=== PATIENT | female | born 1965 | race Caucasian/White ===

== ENCOUNTER 2021-10-07 01:11 | Emergency (ER) | payer SELFPAY ==
[~2021-10-07] VITALS: Ht 167.6 cm; Wt 70.3 kg
--- NOTE | 2021-10-07 01:31 | NUR ---
BIB SON EPIGASTRIC PAIN RADITIANG TO CHEST X 10HRS WELL NASUEA -VOMITTING. PT HAS A HX OF GASTRITIS. PT PLACED ON A MONITOR AND ALL VS STABLE. MD WAS AT THE BEDSIDE FOR EVAL.
[2021-10-07] MEDS ORDERED: MAG HYDROX/AL HYDROX/SIMETH 30 ML UDC PO ONE (02:00)
[2021-10-07] MEDS ORDERED: LIDOCAINE VISCOUS 2% UD 15 ML UDC MM ONE (02:00)
[2021-10-07] MEDS ORDERED: KETOROLAC TROMETHAMINE INJ 30 MG/ML VIAL IM ONE (02:00)
[2021-10-07] MEDS ORDERED: KETOROLAC TROMETHAMINE 15 MG/ML VIAL ONE (02:08)
[2021-10-07] MEDS ORDERED: MAG HYDROX/AL HYDROX/SIMETH 30 ML UDC ONE (02:08)
[2021-10-07] MEDS ORDERED: LIDOCAINE VISCOUS 2% UD 15 ML UDC ONE (02:09)
[2021-10-07 02:59] LABS: BASOPHILS % (AUTO) 0.4 % (0.0-2.0); HEMATOCRIT 41 % (33-45); HEMOGLOBIN 13.8 g/dL (11.5-14.8); LYMPHOCYTES % (AUTO) 18.9 % (20.0-44.0); MEAN CORPUSCULAR HGB CONC 34 g/dl (31.0-36.0); MEAN CORPUSCULAR VOLUME 82 fL (82-100); MONOCYTES # (AUTO) 0.6 K/uL (0.1-1.30); MONOCYTES % (AUTO) 5.6 % (2.0-12.0); NEUTROPHILS # (AUTO) 7.9 K/uL (1.8-8.9); NEUTROPHILS % (AUTO) 74.1 % (43.0-81.0); PLATELET COUNT (AUTO) 313 K/uL (150-450); RED BLOOD CELL COUNT(AUTO) 4.97 MIL/uL (4.0-5.2); WHITE BLOOD COUNT (AUTO) 10.6 K/uL (4.3-11.0)
[2021-10-07 03:29] LABS: CALCIUM, SERUM 9.2 mg/dL (8.5-10.1); CARBON DIOXIDE 27 mmol/L (21-32); CHLORIDE 104 mmol/L (98-107); CREATININE 0.9 mg/dL (0.6-1.3); GLUCOSE 118 mg/dL (74-106); POTASSIUM 4.4 mmol/L (3.5-5.1); SODIUM SERUM 139 mmol/L (136-145); UREA NITROGEN, BLOOD 17 mg/dL (7-18)
[2021-10-07 03:30] LABS: ALANINE AMINOTRANSFERASE 31 U/L (12-78); ALBUMIN 3.8 g/dL (3.4-5.0); ALKALINE PHOSPHATASE 122 U/L (46-116); ASPARTATE AMINOTRANSFERASE 18 U/L (15-37); BILIRUBIN,DIRECT 0.1 mg/dL (0.0-0.2); BILIRUBIN,TOTAL 0.2 mg/dL (0.2-1.0); LIPASE 119 U/L (73-393); TOTAL PROTEIN, SERUM 8.3 g/dL (6.4-8.2)
--- NOTE | 2021-10-07 03:42 | NUR ---
FOLLOWED UP RADIOLOGY FOR ULTRASOUND
--- NOTE | 2021-10-07 04:11 | NUR ---
ULTRASOUND AT BEDSIDE
[2021-10-07] MEDS ORDERED: MORPHINE SULFATE INJ 4 MG/ML DISP.SYRIN ONE (05:00)
[2021-10-07] MEDS ORDERED: IV NS 0.9% 500 ML BAG IV ONE (05:00)
[2021-10-07] MEDS ORDERED: MORPHINE SULFATE INJ 2 MG/ML DISP.SYRIN IV ONE (05:00)
[2021-10-07] MEDS ORDERED: ONDANSETRON HCL/PF 4 MG/2 ML VIAL ONE (05:00)
[2021-10-07] MEDS ORDERED: ONDANSETRON HCL/PF 4 MG/2 ML VIAL IVP ONE (05:00)
--- NOTE | 2021-10-07 05:16 | NUR ---
CALLED NURIS TO HAVE IMAGES READ
--- NOTE | 2021-10-07 05:58 | NUR ---
Patient discharged to home in stable condition. Written and verbal after care instructions given. Patient verbalizes understanding of instruction.IV removed. Catheter intact and site benign. Pressure and 4x4 applied to site. No bleeding noted. Pt ambulatory with a steady gait
[2021-10-07 06:10] VITALS: BP 131/70
== END 2021-10-07 05:58 | disposition home or self-care (01) ==
LOC: ER 01:15
DX: K80.20 Calculus of gallbladder without cholecystitis without obstruction (principal); I10 Essential (primary) hypertension; E78.5 Hyperlipidemia, unspecified; F41.9 Anxiety disorder, unspecified
CPT/HCPCS: 36415; 71045; 76705; 80048; 80076; 83690; 84484; 85025; 93005; 96372; 96374; 96375; 99285; J1885; J2270; J2405; J7040

== ENCOUNTER 2021-11-23 15:59 | Inpatient (IN) | payer OTHER ==
[~2021-11-23] VITALS: Ht 167.6 cm; Wt 74.4 kg
--- NOTE | 2021-11-23 17:01 | NUR ---
TO ER BED 9, EPIGASTRIC/LUQ PAIN X 3 DAYS. DENIES N/V/D, AAOX3, BREATHING EVEN AND NON LABORED, CONNECTED TO MONITOR, AWAITING MD GARCIA
[2021-11-23] MEDS ORDERED: IV NS 0.9% 250 ML IV ONE (17:15)
[2021-11-23] MEDS ORDERED: MORPHINE SULFATE INJ 4 MG/ML DISP.SYRIN ONE (17:15)
[2021-11-23] MEDS ORDERED: IOHEXOL-300 100 ML VIAL IV ONE (17:15)
--- NOTE | 2021-11-23 17:20 | NUR ---
URINE COLLECTED AND SENT TO LAB
--- NOTE | 2021-11-23 17:25 | NUR ---
SALINE LOCK ESTABLISHED, BLOOD DRAWN AND SENT TO LAB
[2021-11-23] MEDS ORDERED: IV NS 0.9% 1,000 ML BAG IV ONE (17:30)
[2021-11-23] MEDS ORDERED: MORPHINE SULFATE INJ 2 MG/ML DISP.SYRIN IV ONE ×2 (17:30→20:30)
[2021-11-23 18:04] LABS: BASOPHILS % (AUTO) 0.2 % (0.0-2.0); EOSINOPHILS % (AUTO) 0.2 % (0.0-6.0); HEMATOCRIT 39 % (33-45); HEMOGLOBIN 12.5 g/dL (11.5-14.8); LYMPHOCYTES # (AUTO) 0.8 K/uL (0.8-4.8); LYMPHOCYTES % (AUTO) 4.9 % (20.0-44.0); MEAN CORPUSCULAR HGB CONC 32 g/dl (31.0-36.0); MEAN CORPUSCULAR VOLUME 83 fL (82-100); MONOCYTES # (AUTO) 1.5 K/uL (0.1-1.30); MONOCYTES % (AUTO) 9.5 % (2.0-12.0); NEUTROPHILS # (AUTO) 13.3 K/uL (1.8-8.9); NEUTROPHILS % (AUTO) 85.2 % (43.0-81.0); PLATELET COUNT (AUTO) 321 K/uL (150-450); RED BLOOD CELL COUNT(AUTO) 4.67 MIL/uL (4.0-5.2); WHITE BLOOD COUNT (AUTO) 15.5 K/uL (4.3-11.0)
[2021-11-23 18:18] LABS: BILIRUBIN,URINE NEGATIVE (NEGATIVE); COLOR,URINE YELLOW (YELLOW); LEUKOCYTE ESTERASE ,URINE MODERATE (NEGATIVE); NITRITE, URINE NEGATIVE (NEGATIVE); PROTEIN,URINE 30 mg/dl (NEGATIVE); UGLUCOSE NEGATIVE (NEGATIVE); UROBILINOGEN,URINE 0.2 EU/dL (0.2)
[2021-11-23 18:29] LABS: ALBUMIN 3.6 g/dL (3.4-5.0); BILIRUBIN,DIRECT 0.3 mg/dL (0.0-0.2); BILIRUBIN,TOTAL 0.8 mg/dL (0.2-1.0); CALCIUM, SERUM 8.6 mg/dL (8.5-10.1); POTASSIUM 3.7 mmol/L (3.5-5.1); TOTAL PROTEIN, SERUM 8.7 g/dL (6.4-8.2)
--- NOTE | 2021-11-23 18:35 | NUR ---
PT TAKEN TO CT VIA [facility]
--- NOTE | 2021-11-23 18:41 | NUR ---
PT RETURNED TO ER BET [address]
[2021-11-23 19:02] LABS: BACTERIA,URINE 4+ /HPF (None Seen); RBC,URINE 21-50 /HPF (0-2); WBC,URINE 21-50 /HPF (0-3)
--- NOTE | 2021-11-23 19:13 | NUR ---
REPORT GIVEN TO JESSICA RANDOLPH FOR IRLANDA
[2021-11-23] MEDS ORDERED: PIPERACILLIN /TAZOBACTAM 3.375 G in IV D5W 50 ML IV ONE (19:30)
--- NOTE | 2021-11-23 19:46 | NUR ---
MRSA SWAB COLLECTED AND SENT TO LAB. PATIENT'S BELONGINGS LIST DONE.
--- NOTE | 2021-11-23 20:10 | NUR ---
CLINICAL INFO GIVEN TO ANANTH, BURNER TECHNICIAN, OVER THE PHONE. AUTHORIZATION GIVEN TO ADMIT THE PT
--- NOTE | 2021-11-23 20:15 | NUR ---
DR PICHARDO ON THE PHONE WITH DR BALLESTEROS, HOSPITALIST
[2021-11-23] MEDS ORDERED: PIPERACILLIN /TAZOBACTAM 3.375 G VIAL IV ONE (20:17)
--- NOTE | 2021-11-23 20:19 | NUR ---
DR PICHARDO ON THE PHONE W/ DR AVILA, SURGEON
[2021-11-23] MEDS ORDERED: Z GUARD REMEDY 4 OZ OINT TP PRN (20:30)
[2021-11-23] MEDS ORDERED: MAGNESIUM HYDROXIDE 30 ML UDC PO PRN (20:30)
[2021-11-23] MEDS ORDERED: MAG HYDROX/AL HYDROX/SIMETH 30 ML UDC PO PRN (20:30)
[2021-11-23] MEDS ORDERED: IV LR 1000 ML 1,000 ML IV ONE (20:30)
--- NOTE | 2021-11-23 21:18 | NUR ---
ASSIGNED TO 323-1. PER SCHEDULED FOR SURGERY AT 0730
--- NOTE | 2021-11-23 21:53 | NUR ---
report given to rey RANDOLPH
[2021-11-23 22:00] VITALS: BP 128/80
--- NOTE | 2021-11-23 22:02 | NUR ---
TRANFERREDTO THIRD FLOOR IN STABLE CONDITION
[2021-11-23] MEDS: ONDANSETRON HCL/PF 4 MG/2 ML VIAL IVP PRN (22:09)
--- NOTE | 2021-11-23 22:10 | NUR ---
MS PARCEL POST ORDER CLERK NOTE PATIENT ARRIVED ON FLOOR, ALERT/ORIENTED X 4, PRIMARILY LUXEMBOURGISH SPEAKING. PATIENT REPORTS NAUSEA AND ABDOMINAL PAIN DESPITE MORPHINE GIVEN IN ER. PATIENT STABLE ON ROOM AIR, NO S/S OF DISTRESS OR SOB NOTED, BREATHING EVEN AND UNLABORED. IV ACCESS ON LEFT AC #20G INTACT AND FLUSHING WELL. PATIENT STATES ONLY MEDICAL HISTORY IS HTN, TAKES LISINOPRIL 10 MG ONCE DAILY. SKIN IS INTACT. PATIENT AMBULATORY AND STEADY. ID BAND PLACED ON PATIENT, BELONGINGS ACCOUNTED FOR AND CHARTED. PER ER NURSE, PATIENT TO BE NPO AT MIDNIGHT FOR LAPAROSCOPIC CHOLECYSTECTOMY, POSSIBLE OPEN WITH DR. AUSTIN MD TO CONSULT IN THE MORNING. SAFETY MEASURES IN PLACE: CALL LIGHT WITHIN REACH, SIDE RAILS UP X 2, BED LOCKED IN LOW POSITION. WILL CONTINUE TO MONITOR PATIENT
[2021-11-23] MEDS: ACETAMINOPHEN 325 MG TABLET PO PRN (22:45)
--- NOTE | 2021-11-23 22:45 | NUR ---
MS RN NOTE CALLED DR. BALLESTEROS REGARDING TEMPERATURE OF 101.9, STATED TO GIVE TYLENOL AND CONTINUE TO MONITOR. TYLENOL 650 MG PO GIVEN ORDERED. WILL CONTINUE TO MONITOR PATIENT
[2021-11-23] MEDS: IV NS 0.9% 1,000 ML IV PRN (22:46)
[2021-11-24] MEDS ORDERED: PIPERACILLIN /TAZOBACTAM 3.375 G in IV D5W 50 ML IV SCH
--- NOTE | 2021-11-24 | NUR ---
MS RN NOTE REASSESSED PATIENT'S TEMPERATURE, NOW 99 DEGREES. WILL CONTINUE TO MONITOR PATIENT
[2021-11-24] MEDS ORDERED: PIPERACILLIN /TAZOBACTAM 3.375 G VIAL IV ONE ×2 (00:06→06:49)
[2021-11-24] MEDS: MORPHINE SULFATE INJ 2 MG/ML DISP.SYRIN IV PRN ×2 (00:53→11:07)
[2021-11-24 06:23] LABS: BASOPHILS # (AUTO) 0.1 K/uL (0.0-0.2); BASOPHILS % (AUTO) 0.4 % (0.0-2.0); EOSINOPHILS % (AUTO) 0.4 % (0.0-6.0); HEMATOCRIT 33 % (33-45); HEMOGLOBIN 10.9 g/dL (11.5-14.8); LYMPHOCYTES % (AUTO) 12.4 % (20.0-44.0); MEAN CORPUSCULAR HGB CONC 33 g/dl (31.0-36.0); MEAN CORPUSCULAR VOLUME 82 fL (82-100); MONOCYTES # (AUTO) 1.9 K/uL (0.1-1.30); MONOCYTES % (AUTO) 11.9 % (2.0-12.0); NEUTROPHILS # (AUTO) 12.1 K/uL (1.8-8.9); NEUTROPHILS % (AUTO) 74.9 % (43.0-81.0); PLATELET COUNT (AUTO) 274 K/uL (150-450); RED BLOOD CELL COUNT(AUTO) 4.01 MIL/uL (4.0-5.2); WHITE BLOOD COUNT (AUTO) 16.1 K/uL (4.3-11.0)
[2021-11-24 07:10] LABS: CALCIUM, SERUM 8.3 mg/dL (8.5-10.1); MAGNESIUM 2.1 mg/dL (1.8-2.4); PHOSPHORUS 3.1 mg/dL (2.5-4.9); POTASSIUM 4.3 mmol/L (3.5-5.1)
[2021-11-24] MEDS ORDERED: LISI10TA29 PO (07:13)
[2021-11-24] MEDS ORDERED: OMEP20CA15 PO (07:14)
[2021-11-24] MEDS ORDERED: ROCURONIUM BROMIDE 50 MG/5 ML ONE (07:14)
[2021-11-24] MEDS ORDERED: FAMOTIDINE/PF INJ 20 MG/2 ML VIAL IV ONE (07:14)
[2021-11-24] MEDS ORDERED: HYDROMORPHONE INJ 2 MG/ML DISP.SYRIN ONE (07:14)
[2021-11-24] MEDS ORDERED: ANESTHESIA TRAY IN PYXIS 1 EA TRAY MC ONE (07:17)
[2021-11-24] MEDS ORDERED: BUPIVACAINE 0.5 % PF 150 MG/30 ML VIAL ONE (07:18)
[2021-11-24] MEDS ORDERED: BUPIVACAINE MPF W/EPI 0.25% 30 ML VIAL ONE (07:18)
--- NOTE | 2021-11-24 07:23 | NUR ---
MS RN OPENING NOTES PATIENT IN PROCEDURE, WILL REASSESS ONCE BACK ON THE FLOOR
[2021-11-24] MEDS ORDERED: CELLULOSE,OXIDIZED 1 EA PACK MC ONE (08:23)
[2021-11-24] MEDS ORDERED: HEMOSTATIC MATRIX 8 ML 1 EACH PAD MC ONE (09:58)
[2021-11-24] MEDS: PIPERACILLIN /TAZOBACTAM 3.375 G in IV D5W 100 ML IV SCH ×2 (10:08→16:09)
--- NOTE | 2021-11-24 10:32 | NUR ---
RN NOTES RECEIVED PATIENT FROM PROCEDURE PATIENT IS A/O X3. PATIENT IS BREATHING EVENLY AND NONLABORED ON ROOM AIR, NO SIGNS OF DISTRESS NOTED. PATIENT COMPLAINS OF PAIN, BUT ASKED TO WAIT FOR PAIN MEDICATION FOR NOW. VITALS BP 115/76, HR 80, RR16, O2 SAT 97% ON ROOM AIR. PATIENT HAS IV ACCESS NOTED ON LAC PATENT INTACT RUNNING ZOSYN @ 25ML/HR, SAFETY MEASURES IN PLACE BED LOW LOCKED AND CALL LIGHT WITHIN REACH. WILL CONTINUE TO MONITOR
[2021-11-24] MEDS: ACETAMINOPHEN 325 MG TABLET PO PRN (16:46)
[2021-11-24] MEDS: HYDROMORPHONE 1 MG/1 ML DISP.SYRIN IV PRN ×2 (17:29→22:09)
--- NOTE | 2021-11-24 18:27 | NUR ---
MS RN CLOSING NOTES PATIENT FROM PROCEDURE PATIENT IS A/O X3. PATIENT IS BREATHING EVENLY AND NONLABORED ON ROOM AIR, NO SIGNS OF DISTRESS NOTED. PATIENT DENIES PAIN OR DISCOMFORT AT THIS TIME. PAIN MEDICATION WAS GIVEN VITALS MAINTAINED WNL. PAIN MEDICATION EFFECTIVE. PATIENT HAS IV ACCESS NOTED ON LAC PATENT INTACT RUNNING ZOSYN @ 25ML/HR, ALL MEDICATIONS GIVEN ORDERED. SAFETY MEASURES IN PLACE BED LOW LOCKED AND CALL LIGHT WITHIN REACH. WILL ENDORSE TO ONCOMING SHIFT
[2021-11-24 20:20] VITALS: BP 103/63
[2021-11-24 20:33] VITALS: BP 103/63
[2021-11-24] MEDS: IV NS 0.9% 1,000 ML IV PRN (22:03)
--- NOTE | 2021-11-24 22:11 | NUR ---
RN NOTE: PAIN PATIENT C/O ABDOMINAL PAIN, SURGERY SITE 08/01. PATIENT REQUESTED TO TAKE PAIN MEDICINE, ONLY DILAUDID AT THIS TIME, NOT MORPHINE. PRN DILAUDID 1 MG IV ADMINISTERED ORDERED. WILL CONTINUE TO MONITOR FOR ANY CHANGES. PATIENT IS ALERT & O X 4 AND AWAKE AT THIS TIME. NO ACUTE DISTRESS NOTED AT THIS TIME.
[2021-11-25] MEDS: PIPERACILLIN /TAZOBACTAM 3.375 G in IV D5W 100 ML IV SCH ×3 (01:28→16:17)
[2021-11-25] MEDS: HYDROMORPHONE 1 MG/1 ML DISP.SYRIN IV PRN ×3 (03:21→18:19)
--- NOTE | 2021-11-25 03:25 | NUR ---
RN NOTE: PAIN PATIENT C/O ABDOMINAL PAIN, SURGERY SITE 07/01 AND REQUESTED TO TAKE PAIN MEDICINE, PRN DILAUDID 1 MG IV ADMINISTERED ORDERED. WILL CONTINUE TO MONITOR FOR ANY CHANGES. PATIENT IS ABLE TO AMBULATE TO THE BATHROOM WITH STAND BY ASSIST. NO ACUTE DISTRESS NOTED AT THIS TIME.
[2021-11-25] MEDS: ACETAMINOPHEN 325 MG TABLET PO PRN (05:53)
--- NOTE | 2021-11-25 05:57 | NUR ---
MS RN NOTE: C/O HEADACHE PATIENT C/O HEADACHE 01/29, VITALS CHECKED BP 104/61, 74, 18, 98.7, 96% AT RA. PATIENT REQUESTED TO TAKE TYLENOL. PRN TYLENOL 650 MG PO ADMINISTERED.
[2021-11-25 06:33] LABS: BASOPHILS % (AUTO) 0.1 % (0.0-2.0); HEMATOCRIT 27 % (33-45); HEMOGLOBIN 9.1 g/dL (11.5-14.8); LYMPHOCYTES # (AUTO) 1.2 K/uL (0.8-4.8); LYMPHOCYTES % (AUTO) 8.7 % (20.0-44.0); MEAN CORPUSCULAR HGB CONC 34 g/dl (31.0-36.0); MEAN CORPUSCULAR VOLUME 82 fL (82-100); MONOCYTES % (AUTO) 6.8 % (2.0-12.0); NEUTROPHILS % (AUTO) 84.4 % (43.0-81.0); PLATELET COUNT (AUTO) 278 K/uL (150-450); RED BLOOD CELL COUNT(AUTO) 3.32 MIL/uL (4.0-5.2); WHITE BLOOD COUNT (AUTO) 14.3 K/uL (4.3-11.0)
[2021-11-25 07:05] LABS: ALBUMIN 2.3 g/dL (3.4-5.0); BILIRUBIN,TOTAL 0.8 mg/dL (0.2-1.0); CALCIUM, SERUM 8.1 mg/dL (8.5-10.1); POTASSIUM 3.5 mmol/L (3.5-5.1); TOTAL PROTEIN, SERUM 6.6 g/dL (6.4-8.2)
--- NOTE | 2021-11-25 07:18 | NUR ---
MS RN OPENING NOTES RECEIVED PATIENT IN BED. E PATIENT IS A/O X3. PATIENT IS BREATHING EVENLY AND NONLABORED ON ROOM AIR, NO SIGNS OF DISTRESS NOTED. PATIENT DENIES PAIN OR DISCOMFORT AT THIS TIME. PATIENT HAS IV ACCESS NOTED ON LAC PATENT INTACT RUNNING NS @ 75ML/HR. SAFETY MEASURES IN PLACE BED LOW LOCKED AND CALL LIGHT WITHIN REACH. WILL
[2021-11-25] MEDS ORDERED: OMEPRAZOLE 20 MG CAPSULE.DR PO SCH (07:30)
[2021-11-25] MEDS: PANTOPRAZOLE 40 MG TABLET.DR PO SCH (08:11)
[2021-11-25] MEDS: LISINOPRIL (10MG) 10 MG TABLET PO SCH (08:13)
[2021-11-25] MEDS: ONDANSETRON HCL/PF 4 MG/2 ML VIAL IVP PRN (11:01)
[2021-11-25] MEDS: METOCLOPRAMIDE HCL 10 MG TABLET PO SCH ×3 (11:01→23:14)
--- NOTE | 2021-11-25 13:22 | NUR ---
RN NOTE PATIENT COMPLAINED OF PAIN, BUT DID NOT WANT DILAUDID OR TYLENOL SAID DILAUDID MAKES HER FEEL DROWSY. MD NOTIFIED WHO GAVE NEW ORDER FOR NORCO 5/325 Q6HRS PRN
[2021-11-25] MEDS: HYDROCODONE/APAP 5/325MG TABLET PO PRN ×2 (13:39→22:35)
--- NOTE | 2021-11-25 19:25 | NUR ---
MS/RN NOTES PT AWAKE IN BED, A/OX4. DENIES PAIN AT THIS TIME. RESPIRATIONS EVEN/UNLABORED. IV SITE: L-AC #20 INTACT/PATENT, RUNNING NS @75ML/HR. WITH MARIA DOLORES DRAIN INTACT, EMPTIED 20CC AT THIS TIME. PT IN NO ACUTE DISTRESS. SAFETY MEASURES IN PLACE, BED IN LOWEST LOCKED POSITION, S/R UPX2, CALL LIGHT WITHIN REACH. WILL CONT TO MONITOR.
[2021-11-25 20:00] VITALS: BP 128/71
[2021-11-25] MEDS: IV NS 0.9% 1,000 ML IV PRN (21:06)
[2021-11-26] MEDS: PIPERACILLIN /TAZOBACTAM 3.375 G in IV D5W 100 ML IV SCH ×2 (00:07→08:48)
[2021-11-26] MEDS: HYDROMORPHONE 1 MG/1 ML DISP.SYRIN IV PRN (05:53)
[2021-11-26] MEDS: METOCLOPRAMIDE HCL 10 MG TABLET PO SCH ×2 (05:53→11:40)
--- NOTE | 2021-11-26 06:50 | NUR ---
MS/RN NOTES PT RESTING IN BED, EASILY AROUSABLE TO STIMULI. RESPIRATIONS EVEN/UNLABORED. PAIN WELL CONTROLLED WITH CURRENT PAIN MEDS. PT ABLE TO AMBULATE TO BR WITH SLOW STEADY GAIT, SUPERVISION PROVIDED FOR SAFETY. ONGOING IVF OF NS @75ML/HR AND SUMMER WELL. PT IN NO ACUTE DISTRESS. SAFETY MEASURES MAINTAINED.
[2021-11-26 06:55] LABS: BASOPHILS % (AUTO) 0.4 % (0.0-2.0); EOSINOPHILS % (AUTO) 0.9 % (0.0-6.0); HEMATOCRIT 30 % (33-45); LYMPHOCYTES # (AUTO) 2.2 K/uL (0.8-4.8); LYMPHOCYTES % (AUTO) 21.9 % (20.0-44.0); MEAN CORPUSCULAR HGB CONC 33 g/dl (31.0-36.0); MEAN CORPUSCULAR VOLUME 82 fL (82-100); MONOCYTES # (AUTO) 0.6 K/uL (0.1-1.30); MONOCYTES % (AUTO) 5.5 % (2.0-12.0); NEUTROPHILS # (AUTO) 7.2 K/uL (1.8-8.9); NEUTROPHILS % (AUTO) 71.3 % (43.0-81.0); PLATELET COUNT (AUTO) 311 K/uL (150-450); RED BLOOD CELL COUNT(AUTO) 3.63 MIL/uL (4.0-5.2); WHITE BLOOD COUNT (AUTO) 10.1 K/uL (4.3-11.0)
--- NOTE | 2021-11-26 07:15 | NUR ---
MS RN OPENING NOTES RECEIVED PATIENT RESTING IN BED, NO SIGNS OF ACUTE DISTRESS NOTED. ON ROOM AIR, NO SOB NOTED. NO C/O PAIN AT THIS TIME. IV ACCESS ON LAC INTACT AND PATENT. WITH MARIA DOLORES DRAIN NOTED WITH SEROSANGUINEOUS OUTPUT. SAFETY MEASURES IN PLACE. BED LOCKED AND IN LOWEST POSITION, SR UP X2, CALL LIGHT PLACED WITHIN EASY REACH. WILL CONTINUE TO MONITOR PT.
[2021-11-26 07:32] LABS: ALBUMIN 2.4 g/dL (3.4-5.0); BILIRUBIN,TOTAL 0.4 mg/dL (0.2-1.0); CALCIUM, SERUM 8.1 mg/dL (8.5-10.1); POTASSIUM 3.3 mmol/L (3.5-5.1); TOTAL PROTEIN, SERUM 7.1 g/dL (6.4-8.2)
[2021-11-26 08:20] VITALS: BP 121/73
[2021-11-26] MEDS: LISINOPRIL (10MG) 10 MG TABLET PO SCH (08:49)
[2021-11-26] MEDS: PANTOPRAZOLE 40 MG TABLET.DR PO SCH (08:49)
[2021-11-26] MEDS: ACETAMINOPHEN 325 MG TABLET PO PRN (08:55)
[2021-11-26] MEDS ORDERED: ACET-907 PO (09:15)
[2021-11-26] MEDS ORDERED: POTASSIUM CHLORIDE 20 MEQ TAB.PRT.SR PO SCH (10:00)
[2021-11-26] MEDS: HYDROCODONE/APAP 5/325MG TABLET PO PRN (15:53)
--- NOTE | 2021-11-26 16:10 | NUR ---
DERRICK FOLLOWER NOTES PATIENT DISCHARGED HOME IN STABLE CONDITION. ALERT AND ORIENTED X4, VERBALLY RESPONSIVE. VITAL SIGNS TAKEN, STABLE AND RECORDED. ALL BELONGINGS ACCOUNTED FOR, FORM SIGNED BY PATIENT. EXIT FOLDER, DISCHARGE INSTRUCTIONS AND HEALTH TEACHINGS PROVIDED TO PATIENT AND SON WITH VERBALIZATION OF UNDERSTANDING. IV ACCESS REMOVED, NO BLEEDING NOTED, PRESSURE DRESSING APPLIED. ARM NAME BAND ALSO REMOVED. PATIENT LEFT UNIT @1600 VIA W/C ACCOMPANIED BY PETRA RAMIREZ AND SOO GARCIA. CN AWARE OF DISCHARGE.
[2021-11-26 16:11] VITALS: BP 105/71
== END 2021-11-26 16:00 | disposition home or self-care (01) | DRG 710 ==
LOC: ER 16:02 → MED 21:22
PROVIDERS: ADMIT Internal Medicine; ATTEND Internal Medicine
PROC: 0FT44ZZ Resection of Gallbladder, Percutaneous Endoscopic Approach (ICD-10-PCS; principal; 2021-11-24)
DX: A41.9 Sepsis, unspecified organism (principal); E87.2 Acidosis; K65.9 Peritonitis, unspecified; K80.00 Calculus of gallbladder with acute cholecystitis without obstruction; K76.0 Fatty (change of) liver, not elsewhere classified; Z20.822 Contact with and (suspected) exposure to COVID-19; E78.5 Hyperlipidemia, unspecified; I10 Essential (primary) hypertension; Z79.899 Other long term (current) drug therapy; N39.0 Urinary tract infection, site not specified; B96.89 Other specified bacterial agents as the cause of diseases classified elsewhere; K82.8 Other specified diseases of gallbladder
CPT/HCPCS: 36415; 71045-TC; 76705-TC; 80048-TC; 80053-TC; 80076-TC; 81001; 82962-TC; 83690-TC; 83735-TC; 84100-TC; 85025-TC; 85610-TC; 85730-TC; 86850-TC; 87081-TC; 87086-TC; 87186-TC; 88304-TC; G0378; J0330; J1100; J1170; J1885; J2270; J2405; J2543; J2704; J3490; J7030; J7050; J7060; J7120; J8597; Q9967